=== PATIENT | male | born 1955 | race Caucasian/White ===

== ENCOUNTER 2018-05-09 23:17 | Emergency (ER) | payer OTHER ==
[2018-05-10] MEDS ORDERED: Cephalexin 250 MG CAP ONE (00:26)
[2018-05-10 00:30] LABS: #Eosinphils 0.1 thou/uL (0.0-0.7); #Lymphocytes 0.7 thou/uL (1.20-3.40); #Monocytes 0.5 thou/uL (0.11-0.59); #Neutrophils 4.9 thou/uL (1.40-6.50); %Basophils 0.1 % (0.0-1.0); %Eosinophils 1.3 % (0.0-10.0); %Lymphocytes 11.9 % (21.0-51.0); %Neutrophils 78.8 % (42.0-75.0); Hemoglobin 10.7 g/dL (14.0-18.0); Mean Corpuscular HGB CONC 34.7 g/dL (32.0-36.0); Mean Corpuscular Hemoglobin 32.3 pg (27.0-31.0); Mean Corpuscular Volume 92.9 fL (78.0-98.0); Mean Platelet Volume 7.6 fL (7.4-10.4); Platelet Count 219 thou/uL (130-400); RBC Distribution Width 11.9 % (11.5-14.5); Red Blood Cell (RBC) Count 3.32 mill/uL (4.70-6.10); White Blood Cell (WBC) Count 6.2 thou/uL (4.8-10.8)
[2018-05-10] MEDS ORDERED: levETIRAcetam 500 MG TAB PO SCH (00:30)
[2018-05-10 00:57] LABS: ALT (SGPT) 21 U/L (8-55); AST (SGOT) 27 U/L (5-34); Albumin 3.8 g/dL (3.4-4.8); Alkaline Phosphatase 80 U/L (40-150); Anion Gap 14 mmol/L (10-20); BUN (Urea Nitrogen) 38 mg/dL (8.4-25.7); Bilirubin, Total 0.4 mg/dL (0.2-1.2); Calc. Creatinine Clearance 0 mL/min (70-130); Calcium 9.1 mg/dL (7.8-10.44); Carbon Dioxide 24 mmol/L (23-31); Chloride 103 mmol/L (98-107); Estimated GFR-MDRD 23; Globulin 2.4 g/dL (2.4-3.5); Glucose 245 mg/dL (80-115); Potassium 3.5 mmol/L (3.5-5.1); Protein, Total 6.2 g/dL (5.8-8.1); Sodium 137 mmol/L (136-145)
--- NOTE | 2018-05-10 10:41 | CT ---
PRELIMINARY REPORT/[facility]/EMERGENTY AFTER-HOURS PROCEDURE CT Head Without Intravenous Contrast EXAM DATE/TIME: 05/10/2018 12:44 AM CLINICAL HISTORY: 63 years old, male; Signs and symptoms; Other: Seizure; Prior surgery; Patient HX: History provided b y patient's family, , araceli presents to ed with C/O seizure and chills, onset just bar captain. report s the seizure lasted >5 minutes. reports PT last seizure was in january. PT takes keppra and chemo drugs. PT denies headache, vision problems. Med HX: Glioblastoma, brain surgery, seizures, cancer, fl uid retention TECHNIQUE: Axial computed tomography images of the head/brain without intravenous contrast. COMPARISON: No relevant prior studies available. FINDINGS: Brain: There is a cluster of right frontotemporal calcifications with irregular adjacent decreased at tenuation, most likely representing dystrophic calcifications with encephalomalacia/gliosis. Trace right frontotemporal subdural hyperdensity at the site of prior craniotomy is likely postoperative du ral thickening; however, trace subdural hematoma can have the same appearance. Midline shift: No midline shift. Ventricles: Normal. No ventriculomegaly. Bones/joints: Remote postsurgical changes of the skull. Sinuses: Normal as visualized. No acute sinusitis. Mastoid air cells: Normal as visualized. No mastoid effusion. Soft tissues: Normal. IMPRESSION: 1. There is a cluster of right frontotemporal calcifications with irregular adjacent decreased attenu ation, most likely representing dystrophic calcifications with encephalomalacia/gliosis. Recommend co mparison with prior studies. 2. Trace right frontotemporal subdural hyperdensity at the site of prior craniotomy is likely postope rative dural thickening; however, trace subdural hematoma can have the same appearance. Recommend com parison with prior studies. Thank you for allowing us to participate in the care of your patient. Dictated and Authenticated by: Dante Green MD 05/10/2018 1:29 AM Central Time ([place] & [place]) FINAL REPORT CT BRAIN: Date: 05/10/18 Comparison made to previous exam from 02/14/17. Preliminary exam was performed by [facility]. The patient has had a previous right frontotemporal craniotomy. Some areas of calcification seen in t he previously noted frontoparietal signal abnormality. This may represent postoperative calcification s. Some encephalomalacic and gliotic changes also seen in the posterior frontal lobe including the gr ay matter and the deep white matter. There appears to be a subtle area of extradural density adjacent to the craniotomy site. This may rep resent postsurgical changes. No acute intracranial abnormality seen. IMPRESSION: Right frontoparietal craniotomy changes. No acute intracranial pathology seen. I am in agreement with the preliminary report issued by [facility]. POS: [facility]
== END 2018-05-10 02:42 | disposition home or self-care (01) ==
LOC: ERS 23:17
DX: R56.9 Unspecified convulsions (principal); E10.9 Type 1 diabetes mellitus without complications; E78.5 Hyperlipidemia, unspecified; I10 Essential (primary) hypertension; C71.9 Malignant neoplasm of brain, unspecified; Z79.899 Other long term (current) drug therapy
CPT/HCPCS: 36415; 70450; 80053; 80177; 85025

== ENCOUNTER 2018-10-05 18:27 | Emergency (ER) | payer OTHER ==
--- NOTE | 2018-10-05 19:40 | RAD ---
TWO VIEWS LEFT FOREARM: 10/05/18 HISTORY: Fall. Complaining of arm pain. AP and lateral views left forearm obtained. Two views left forearm demonstrate no evidence of left forearm fractures, subluxations or bony lesion s. IMPRESSION: Normal two views left forearm. POS: [facility]
--- NOTE | 2018-10-05 19:48 | RAD ---
TWO VIEWS LEFT HIP: 10/05/18 HISTORY: Left sided pain, fall. AP and frogleg views left hip is obtained. Two views left hip demonstrate no evidence of left hip fractures, subluxations or bony lesions. IMPRESSION: Normal two views left hip. POS: [facility]
--- NOTE | 2018-10-05 19:51 | RAD ---
LEFT ELBOW TWO VIEW 10/05/18 HISTORY: Pain. COMPARISON: None. FINDINGS: There is a small joint effusion. No acute displaced fracture is appreciated. Minimal degenerative tray nges. IMPRESSION: Joint effusion, small, without displaced fracture appreciated. This may reflect a nondisplaced radial neck fracture. Followup after conservative management is recommended. POS: [facility]
--- NOTE | 2018-10-05 20:01 | CT ---
CT CERVICAL SPINE WITHOUT CONTRAST 10/05/18 HISTORY: Fall. Pain. COMPARISON: None. FINDINGS: The occipital condyles are intact. The odontoid process is intact. Prominent nutrient foramen of C7. There is end plate erosions on the right at C6-C7. Bones are osteopenic. The transverse processes are intact. The lung apices are clear. IMPRESSION: No acute fracture or malalignment of the cervical spine. POS: [facility]
--- NOTE | 2018-10-05 20:10 | CT ---
CT BRAIN WITHOUT CONTRAST: 10/05/18 HISTORY: Fall. COMPARISON: CT brain 05/10/18. FINDINGS: There is some mild scoliosis of the right temporoparietal lobe internal calcifications. There is some hypodensity along the posterior limb right internal capsule. No hemorrhage. No acute infarction is appreciated. No midline shift. No hydrocephalus. Calvarium is intact. Craniotomy changes on the right calvarium. IMPRESSION: Chronic changes. No acute intracranial abnormality. POS: [facility]
--- NOTE | 2018-10-05 20:18 | RAD ---
AP AND LATERAL VIEWS LUMBAR SPINE: 10/05/18 HISTORY: Paralysis due to brain tumor. Fall. Back pain. AP and lateral views lumbar spine obtained. Images demonstrate disc space height loss with anterior and posterior osteophytes at L4-5 and L5-S1. This is compatible with changes of spondylosis. No evidence of acute fractures or bony lesions seen. IMPRESSION: L4-5 and L5-S1 changes of spondylosis. POS: [facility]
--- NOTE | 2018-10-05 21:03 | RAD ---
LEFT HAND THREE VIEW 10/05/18 HISTORY: Pain. COMPARISON: None. FINDINGS: There is a subtle lytic lucency at the distal ulnar medial aspect of the metaphysis. No acute fractur e is appreciated. IMPRESSION: 1. No acute fracture or malalignment. 2. Small lytic foci of the distal ulnar metaphysis. Nonemergent MRI followup with and without co ntrast may be beneficial if clinically warranted. POS: [facility]
== END 2018-10-05 21:42 | disposition home or self-care (01) ==
LOC: ERS 18:27
DX: S52.122A Displaced fracture of head of left radius, initial encounter for closed fracture (principal); E10.9 Type 1 diabetes mellitus without complications; E78.5 Hyperlipidemia, unspecified; I10 Essential (primary) hypertension; Z79.899 Other long term (current) drug therapy; Z79.4 Long term (current) use of insulin; W19.XXXA Unspecified fall, initial encounter
CPT/HCPCS: 70450; 72100; 72125